=== PATIENT | female | born 1990 | race Hispanic/Latino ===

== ENCOUNTER 2018-09-13 20:55 | Emergency (ER) | payer OTHER ==
[2018-09-13] MEDS ORDERED: ONDANSETRON HCL 4 MG/2 ML VIAL ONE (22:01)
[2018-09-13] MEDS ORDERED: SODIUM CHLORIDE 0.9% 1000ML 1,000 ML IV ONE (22:02)
[2018-09-13 22:29] LABS: APPEARANCE,URINE Clear (CLEAR); BILIRUBIN,URINE Negative (NEGATIVE); COLOR,URINE Yellow (YELLOW); GLUCOSE, URINE (UA) Negative (NEGATIVE); KETONES,URINE >=80 mg/dL (NEGATIVE); LEUKOCYTE ESTERASE ,URINE Negative (NEGATIVE); NITRATE,URINE Negative (NEGATIVE); OCCULT BLOOD,URINE Negative (NEGATIVE); PROTEIN,URINE POS 1+ (NEGATIVE)
[2018-09-13 22:32] LABS: HCG,QUAL RESULT NEGATIVE (NEGATIVE)
== END 2018-09-13 23:43 | disposition home or self-care (01) ==
LOC: EDH 20:55
DX: F41.1 Generalized anxiety disorder (principal); F45.8 Other somatoform disorders; E86.9 Volume depletion, unspecified
CPT/HCPCS: 81003; 81025; 93005; 96361; 96374; 99284; J2405; J7030